=== PATIENT | female | born 1995 | race Caucasian/White ===

== ENCOUNTER → 2024-03-25 | Outpatient (CLI) | payer SELFPAY ==
--- NOTE | 2024-03-25 16:09 | US_ITS ---
INDICATION: LUMP IN NECK EXAMINATION: Ultrasound US Thyroid (eg thyroid, parathyroid, parotid) TECHNIQUE: Wan scale and color doppler imaging was performed of the thyroid gland. COMPARISON: No relevant prior comparison study available FINDINGS: RIGHT THYROID LOBE: 4.5 x 1.0 x 1.7 cm. Homogeneous echotexture with normal vascularity. [No thyroid nodules are present. LEFT THYROID LOBE: 4.0 x 0.9 x 1.8 cm. Homogeneous echotexture with normal vascularity. [There is a 0.5 x 0.3 x 0.4 cm hypoechoic somewhat ill-defined nodule (TI-RADS 2). There is a similar appearing hypoechoic nodule within the left lobe measuring 0.2 x 0.2 x 0.2 cm (TI-RADS 2). ISTHMUS: 0.2 cm. No thyroid nodules are present. Within the region of concern of the right anterior neck within the submandibular region there is a benign appearing lymph node retaining] fatty hilum and measuring up to 0.7 cm in short axis. US/Thyroid IMPRESSION: Benign submandibular lymph node measuring up to 0.7 cm in short axis. Two nodules within the left lobe of the gland. Mildly enlarged thyroid gland. Electronically Signed: Peg Garrett MD at 10:19 EDT ,
== END | disposition home or self-care (01) ==
PROVIDERS: PCP Family Medicine; Referring Provider Family Medicine; Visit Provider Family Medicine
DX: M54.2 Cervicalgia (principal); R22.1 Localized swelling, mass and lump, neck
CPT/HCPCS: 76536

== ENCOUNTER → 2024-04-23 | Outpatient (CLI) | payer SELFPAY ==
--- NOTE | 2024-04-23 07:20 | CT_ITS ---
STUDY: CT SOFT TISSUE NECK WITH CONTRAST REASON FOR EXAM: Female, 28 years old. Right-sided neck mass. Patient has a history of right thyroid nodules. Dysphagia. RADIATION DOSAGE (If Supplied By Facility): CTDIvol = ( 17.62 ) mGy, DLP = ( 541.44 ) mGycm TECHNIQUE: The patient was scanned in a multi-detector CT scanner. High resolution transaxial imaging was performed following intravenous administration of IV 100mL Isovue-[id number]. Sagittal and coronal images were reconstructed. Individualized dose optimization techniques were used for this CT. COMPARISON: None. FINDINGS: Normal bilateral parotid glands. Normal bilateral grinding operator spaces. Normal bilateral parapharyngeal spaces. Normal bilateral carotid spaces. Normal bilateral sublingual and submandibular glands and spaces. Normal visualized nasopharynx. Normal retropharyngeal space. Normal perivertebral space. Normal visualized bilateral faucial tonsils. The visualized tongue, tongue base and oropharynx are normal. There are small lymph nodes of the neck, with preservation of normal rupesh architecture, consistent with a reactive lymph hyperplasia. There is no demonstrated solid or cystic mass lesion. There is no abnormal contrast enhancement. Normal epiglottis, bilateral vallecula and hypopharynx. The pre-epiglottic and paraglottic adipose spaces are normal. Normal visualized bilateral piriform sinuses, aryepiglottic folds, vocal cords, and arytenoid-cricoid articulations. Normal subglottic trachea. Normal bilateral lobes of the thyroid gland. Normal visualized pulmonary apices. Normal visualized paranasal sinuses. Normal visualized cervical spine. CT/Soft Tissue Neck WITH Contrast IMPRESSION: Small benign-appearing scattered cervical lymph nodes. No masses seen. Electronically Signed: Ephraim Mckee MD at 13:27 EDT ,
== END | disposition home or self-care (01) ==
LOC: CT 07:16
PROVIDERS: PCP Family Medicine; Referring Provider Otolaryngology; Visit Provider Otolaryngology
DX: R13.10 Dysphagia, unspecified (principal)
CPT/HCPCS: 70491; Q9967